=== PATIENT | female | born 1980 | race Caucasian/White ===

== ENCOUNTER 2019-06-25 16:52 | Emergency (ER) | payer OTHER ==
[2019-06-25 17:32] LABS: Bacteria/HPF None Seen HPF (None Seen); Bilirubin Negative (Negative); Blood, Urine Trace (Negative); Clarity Clear (Clear); Glucose, Urine (Dipstick) Normal (Negative); Leukocyte Negative Leu/uL (Negative); Nitrite Negative (Negative); Protein, Urine (Dipstick) Negative (Neg-Trace); Squamous Epithelial 0-3 HPF (0-3); Urobilinogen Normal mg/dL (Less than 2); WBC/HPF 0-3 HPF (0-3)
[2019-06-25 17:44] LABS: #Basophils 0.1 thou/uL (0.0-0.2); #Eosinphils 0.1 thou/uL (0.0-0.7); #Lymphocytes 2.2 thou/uL (1.20-3.40); #Monocytes 0.7 thou/uL (0.11-0.59); #Neutrophils 5.9 thou/uL (1.40-6.50); %Basophils 0.7 % (0.0-1.0); %Eosinophils 1.1 % (0.0-10.0); %Lymphocytes 24.2 % (21.0-51.0); Hemoglobin 11.7 g/dL (12.0-16.0); Mean Corpuscular HGB CONC 33.5 g/dL (32.0-36.0); Mean Corpuscular Hemoglobin 30.8 pg (27.0-31.0); Mean Corpuscular Volume 91.9 fL (78.0-98.0); Platelet Count 295 thou/uL (130-400)
[2019-06-25] MEDS ORDERED: Ondansetron PF 4 MG/2 ML Vial ONE (17:59)
[2019-06-25 18:05] LABS: ALT (SGPT) 29 U/L (8-55); AST (SGOT) 13 U/L (5-34); Albumin 4.3 g/dL (3.5-5.0); Alkaline Phosphatase 83 U/L (40-110); Anion Gap 11 mmol/L (10-20); BUN (Urea Nitrogen) 9 mg/dL (7.0-18.7); Bilirubin, Total 0.2 mg/dL (0.2-1.2); Calc. Creatinine Clearance 0 mL/min (70-130); Calcium 9.1 mg/dL (7.8-10.44); Carbon Dioxide 24 mmol/L (22-29); Chloride 105 mmol/L (98-107); Estimated GFR-MDRD Greater than 90; Globulin 2.8 g/dL (2.4-3.5); Glucose 107 mg/dL (70-105); Lipase 33 U/L (8-78); Potassium 3.9 mmol/L (3.5-5.1); Protein, Total 7.1 g/dL (6.0-8.3); Sodium 136 mmol/L (136-145)
--- NOTE | 2019-06-25 18:36 | ULT ---
Ultrasound abdomen limited: (Right lower quadrant) DATE: 06/25/2019 HISTORY: 39-year-old female with right lower quadrant abdominal pain, nausea, and emesis. TECHNIQUE: Focused ultrasound of the right lower quadrant. FINDINGS: The appendix is not identified. Appendicitis is needed ruled in normal without. The patient is very t boub[place] in this region. IMPRESSION: Nondiagnostic for appendicitis.
--- NOTE | 2019-06-25 19:17 | ULT ---
ULTRASOUND PELVIC ULTRASOUND TRANSVAGINAL DOPPLER DUPLEX: DATE: 06/25/2019 HISTORY: 39-year-old female with right lower quadrant abdominal pain, nausea, and vomiting. TECHNIQUE: Transabdominal transducer and endovaginal transducer used to visualize intrapelvic contents with castanon scale, color-flow, and spectral analysis. FINDINGS: Appendix not identified. Right ovary: 3.7 x 2.8 x 3.7 cm. Left ovary: 2.7 x 1.6 x 2.0 cm. Blood flow demonstrated in both ovaries by Doppler. 0.8 x 0.4 cm cystic structure in left ovary. 2.5 x 2.5 x 3 cm round cyst expands the right ovary. There are at least 3 uterine leiomyomata. The largest one is 3.5 x 3 x 3.5 cm. Intrauterine gestational sac. Booth fetus. heart rate: 163 BPM. No subchorionic hemorrhage. [place]-rump length 6 cm: 12 weeks 3 days No free fluid in cul-de-sac or adnexa. IMPRESSION: 1. Appendix still not identified. 2. Live very early second trimester intrauterine gestation estimated to be 12 weeks 3 days gestationa l age. 3. A 3 cm right ovarian cyst. 4. At least 3 uterine fibroids (leiomyomata).
== END 2019-06-25 19:00 | disposition home or self-care (01) ==
LOC: ERS 16:52
DX: O34.81 Maternal care for other abnormalities of pelvic organs, first trimester (principal); N83.201 Unspecified ovarian cyst, right side; O34.11 Maternal care for benign tumor of corpus uteri, first trimester; Z3A.12 12 weeks gestation of pregnancy
CPT/HCPCS: 76705; 76856; 80053; 81003; 81015; 83690; 85025; 96361; 96374; J2405

== ENCOUNTER 2019-06-26 07:18 | Emergency (ER) | payer OTHER | END 2019-06-26 08:12 | disposition home or self-care (01) | LOC: ERS 07:18 | DX: O99.89 Other specified diseases and conditions complicating pregnancy, childbirth and the puerperium (principal); R10.9 Unspecified abdominal pain | CPT/HCPCS: 99283 ==

== ENCOUNTER 2019-12-28 16:58 | Inpatient (IN) | payer OTHER ==
[~2019-12-28 16:58] MED LIST: Bupivacaine 0.25% HCL 30 ML VIAL ONE
[2019-12-28] MEDS ORDERED: NS / Oxytocin 40 units/1000ml 1,000 ML IV PRN (17:01)
[2019-12-28] MEDS ORDERED: Promethazine HCl 25 MG/ML VIAL IM PRN (17:01)
[2019-12-28] MEDS ORDERED: Diphenoxylate HCl/Atropine Tablet PO PRN (17:01)
[2019-12-28] MEDS ORDERED: Ibuprofen 800 MG TAB PO PRN (17:01)
[2019-12-28] MEDS ORDERED: hydrALAZINE 20 MG/ML VIAL SLOW IVP PRN (17:01)
[2019-12-28] MEDS ORDERED: Misoprostol 200 MCG TAB PR PRN (17:01)
[2019-12-28] MEDS ORDERED: Carboprost 250 MCG/ML AMP IM PRN (17:01)
[2019-12-28] MEDS ORDERED: HYDROcodone/Acetaminophen 5/325 mg Tablet PO PRN (17:01)
[2019-12-28] MEDS ORDERED: Acetaminophen 500 MG TAB PO PRN (17:01)
[2019-12-28] MEDS ORDERED: Lidocaine 1% (PF) 30 ML VIAL SC PRN (17:01)
[2019-12-28] MEDS ORDERED: Ondansetron PF 4 MG/2 ML Vial IVP PRN (17:01)
[2019-12-28 17:42] VITALS: BMI 36.8
[2019-12-28] MEDS: Lactated Ringer's 1,000 ML IV SCH ×2 (18:00→21:37)
[2019-12-28] MEDS: Misoprostol 100 MCG TAB VAG SCH ×2 (18:08→21:21)
[2019-12-28 18:22] LABS: Hemoglobin 11.9 g/dL (12.0-16.0); Mean Corpuscular HGB CONC 33.1 g/dL (32.0-36.0); Mean Corpuscular Hemoglobin 30.6 pg (27.0-31.0); Mean Corpuscular Volume 92.3 fL (78.0-98.0); Platelet Count 284 thou/uL (130-400); RBC Distribution Width 13.5 % (11.5-14.5); White Blood Cell (WBC) Count 9.2 thou/uL (4.8-10.8)
[2019-12-28 18:35] LABS: ALT (SGPT) 9 U/L (8-55); AST (SGOT) 9 U/L (5-34); Albumin 3.8 g/dL (3.5-5.0); Alkaline Phosphatase 274 U/L (40-110); Anion Gap 14 mmol/L (10-20); BUN (Urea Nitrogen) 8 mg/dL (7.0-18.7); Bilirubin, Total 0.2 mg/dL (0.2-1.2); Calc. Creatinine Clearance 215 mL/min (70-130); Calcium 9.1 mg/dL (7.8-10.44); Carbon Dioxide 20 mmol/L (22-29); Chloride 106 mmol/L (98-107); Estimated GFR-MDRD Greater than 90; Globulin 3.1 g/dL (2.4-3.5); Glucose 73 mg/dL (70-105); Potassium 4.2 mmol/L (3.5-5.1); Protein, Total 6.9 g/dL (6.0-8.3); Sodium 136 mmol/L (136-145)
[2019-12-28 18:54] LABS: HBSAg Index 0.17 S/CO (0-0.99); Hep B Surf Ag Non-Reactive S/CO (NonReactive)
[2019-12-28 19:00] LABS: Syphilis Antibody Nonreactive (Nonreactive); Syphilis Antibody Index 0.04 S/CO (<1.00 Non-Reactive)
--- NOTE | 2019-12-28 20:45 | PDOC.LDHP ---
Labor and Delivery H&P Chief complaint: other (elevated BP) HPI: 39yo at 39w0d by LMP sent over from clinic for new onset severe range BP 140/102. No sx PIH or labor. Current gestational age (weeks): 39 Due date: 01/04/20 Dating criteria: last menstrual period Grav: 2 Para: 0 Current complications: other (AMA, CF carrier) Abnormal US findings: No Past Medical History: Hx of gastric bypass, anemia, vit d deficiency Current medications: pre- vitamins, iron, other (vitamin d) Previous surgical history: dilation and curettage, other (bypass) Allergies/Adverse Reactions: Allergies Allergy/AdvReac Type Severity Reaction Status Date / Time hydromorphone [From Dilaudid] Allergy Verified 12/28/19 17:45 Penicillins Allergy Verified 12/28/19 17:45 Social history: none - Physical Exam Vital signs reviewed and normal: yes Abnormal vital signs: mild range bps General: NAD Heart: RRR Lungs: CTAB Abdomen: gravid Extremeties: no edema FHT: category 1 [place] contractions every: none - Vaginal Exam cm dilated: 1 Effacement: 50% Station: -2 - OB Labs Blood type: O RH: positive Antibody Screen: negative HIV: negative RPR: negative HEPSAg: negative 1 hour GCT: positive 3 hour GTT: neg- 1/4values abn GBS: negative Urine drug screen: negative Rubella: non-immune - Assessment L&D Assessment: medically indicated induction - Plan Plan: admit to L&D, cervical ripening, labor augmentation if indicated, informed consent obtained, anesthesia consult for pain management (PIH labs wnl , Mag for severe features.)
[2019-12-29] MEDS: Misoprostol 100 MCG TAB VAG SCH ×2 (03:48→08:43)
[2019-12-29] MEDS: Butorphanol Tartrate 1 MG/ML VIAL SLOW IVP PRN ×4 (03:50→11:32)
[2019-12-29] MEDS: Lactated Ringer's 1,000 ML IV SCH ×2 (05:44→14:40)
--- NOTE | 2019-12-29 08:36 | PDOC.LDPN ---
Labor & Delivery Progress Note - Subjective Subjective: comfortable - Objective Vital signs reviewed and normal: yes Abnormal vital signs: mild range bp General: NAD Uterine fundus: non tender Dilation: 1 Effacement: 75% Station: -1 FHT: category 1 [place] contractions every: 3min Plan: other (cont cytotec for ripening.) -: no sx pIH, Mag for severe features.
[2019-12-29] MEDS ORDERED: Fentanyl 4 mcg/Bup 0.1% Cadd 100 ML ONE (11:38)
[2019-12-29] MEDS ORDERED: Acetaminophen 325 MG TAB PO PRN (12:50)
[2019-12-29] MEDS ORDERED: diphenhydrAMINE 50 MG/ML VIAL IVP PRN (12:50)
[2019-12-29] MEDS ORDERED: Promethazine HCl 25 MG/ML VIAL IM PRN (12:50)
[2019-12-29] MEDS ORDERED: Naloxone HCl 0.4 mg/ml Vial IVP PRN ×2 (12:50)
[2019-12-29] MEDS ORDERED: Lactated Ringer's 500 ML IV PRN (12:50)
[2019-12-29] MEDS ORDERED: Ondansetron PF 4 MG/2 ML Vial IVP PRN ×2 (12:50→19:56)
[2019-12-29] MEDS ORDERED: EPHEDRINE 25 MG/5 ML SYRINGE SLOW IVP PRN (12:50)
[2019-12-29] MEDS ORDERED: Fentanyl 4 mcg/Bupivacaine 0.1% Cassette 100 ML EPIDURAL SCH (13:00)
[2019-12-29] MEDS ORDERED: Communication Order-Pharmacy FS SCH (13:00)
[2019-12-29] MEDS: NS w/ Oxytocin 10 units 500 ML IV SCH (13:34)
--- NOTE | 2019-12-29 19:00 | PDOC.OPDEL ---
OB Operative/Delivery Note Delivery Dr/Surgeon: Emelia Assist: n/a Pre-Delivery Diagnosis: medically indicated induction (GHTN) Procedure/Post Delivery Dx: spontaneous vaginal delivery Weeks gestation: 39 Anesthesia: epidural - Findings A Sex: male - 1 min: 8 - 5 min: 9 - Additional Findings/Plan Placenta delivered: spontaneous Repaired Obstetrical Laceration: periurethral (and first degree perineal) Estimated blood loss: 166cc qbl Post delivery plan: routine recovery
[2019-12-29] MEDS ORDERED: Lanolin Ointment 7 GM TUBE TOP PRN (19:56)
[2019-12-29] MEDS ORDERED: Benzocaine-Menthol 82.5 ML CAN TOP PRN (19:56)
[2019-12-29] MEDS ORDERED: Measles/Mumps/Rubella 10 MCG/0.5 ML VIAL SC ONE (19:56)
[2019-12-29] MEDS ORDERED: diphenhydrAMINE 25 MG CAP PO PRN (19:56)
[2019-12-29] MEDS ORDERED: Milk Of Magnesia 30 ML UDCUP PO PRN (19:56)
[2019-12-29] MEDS ORDERED: Preparation H Ointment 28 GM TUBE PR PRN (19:56)
[2019-12-29] MEDS ORDERED: Bisacodyl 10 MG SUPP PR PRN (19:56)
[2019-12-29] MEDS ORDERED: HYDROcodone/Acetaminophen 5/325 mg Tablet PO PRN ×2 (19:56)
[2019-12-29] MEDS ORDERED: hydrALAZINE 20 MG/ML VIAL SLOW IVP PRN (19:56)
[2019-12-29] MEDS ORDERED: NS / Oxytocin 40 units/1000ml 1,000 ML IV SCH (19:56)
[2019-12-29] MEDS ORDERED: Adacel (T-DAP) 0.5 ML SYRINGE IM ONE (19:56)
[2019-12-29] MEDS: Docusate Calcium (SURFAK) 240 MG CAP PO SCH (21:07)
[2019-12-29] MEDS: Ibuprofen 800 MG TAB PO SCH (21:08)
--- NOTE | 2019-12-30 01:15 | PDOC.PP ---
Post Progress Note Post Day #: PPD1 Subjective: Resting, no c/o. PO intake tolerated: yes Flatus: yes Ambulation: yes Vital Signs (12 hours) Temp Pulse Resp BP Pulse Ox 12/29/19 21:40 98.7 F 88 18 121/59 L 98 12/29/19 20:40 98 12/29/19 20:35 98.7 F 88 18 121/59 L 98 12/29/19 15:30 84 Weight Weight 109.769 kg - Physical Examination General: NAD Respiratory: non-labored breathing Abdominal: no distention Neurological: no gross focal deficits Psychiatric: normal affect Result Diagrams: 12/28/19 18:04 12/28/19 18:04 Additional Labs: Post Labs Blood Type O POSITIVE 12/28/19 18:34 Hep Bs Antigen Non-Reactive S/CO (NonReactive) 12/28/19 18:04 - Assessment/Plan Doing well s/p . Routine PP care.
[2019-12-30] MEDS: Ibuprofen 800 MG TAB PO SCH ×3 (05:57→21:48)
[2019-12-30] MEDS: Misoprostol 100 MCG TAB VAG SCH ×2 (07:51→07:52)
[2019-12-30] MEDS: NS w/ Oxytocin 10 units 500 ML IV SCH (07:52)
[2019-12-30] MEDS: Docusate Calcium (SURFAK) 240 MG CAP PO SCH ×2 (08:21→21:48)
[2019-12-30] MEDS: Prenatal Vitamin 1 TAB PO SCH (08:21)
[2019-12-30] MEDS: Ferrous Sulfate 325 MG TAB PO SCH ×2 (08:22→18:07)
[2019-12-31] MEDS: Ibuprofen 800 MG TAB PO SCH ×2 (05:27→14:23)
[2019-12-31 08:21] VITALS: BP 118/58; TEMP 98.8
[2019-12-31] MEDS: Docusate Calcium (SURFAK) 240 MG CAP PO SCH (09:05)
[2019-12-31] MEDS: Prenatal Vitamin 1 TAB PO SCH (09:05)
[2019-12-31] MEDS: Ferrous Sulfate 325 MG TAB PO SCH ×2 (09:06→15:24)
--- NOTE | 2020-01-01 06:35 | DIS ---
DATE OF ADMISSION: 12/28/2019 DATE OF DISCHARGE: 12/31/2019 TIME OF SERVICE: 0730 hours. HISTORY: The patient is day #2, status post . She had severe range gestational hypertension with normal pressures post-. She has no complaints. PHYSICAL EXAMINATION: VITAL SIGNS: Temperature 98.5, pulse 70, respirations 18, blood pressure 115/59. HEENT: Within normal limits. LUNGS: Clear to auscultation bilaterally. HEART: Regular rate and rhythm. ABDOMEN: Soft and nontender. Normal lochia. Fundus firm. EXTREMITIES: Without clubbing, cyanosis, or edema. IMPRESSION: Doing well, status post normal spontaneous vaginal delivery. PLAN: Discharge home. Keep scheduled followup. Routine followup with Dr. Kapoor. Job ID: [id number]
== END 2019-12-31 17:15 | disposition home or self-care (01) | DRG 807 ==
LOC: L&D 16:58 → 3SW 12-29 20:37 → EDSTATUS 01-03 12:51
PROVIDERS: ADMIT Student in an Organized Health Care Education/Training Program; ATTEND Student in an Organized Health Care Education/Training Program
PROC: 3E0P7VZ Introduction of Hormone into Female Reproductive, Via Natural or Artificial Opening (ICD-10-PCS; 2019-12-28)
PROC: 10E0XZZ Delivery of Products of Conception, External Approach (ICD-10-PCS; principal; 2019-12-29)
PROC: 0HQ9XZZ Repair Perineum Skin, External Approach (ICD-10-PCS; 2019-12-29)
PROC: 0UQMXZZ Repair Vulva, External Approach (ICD-10-PCS; 2019-12-29)
DX: O13.4 Gestational [pregnancy-induced] hypertension without significant proteinuria, complicating childbirth (principal); Z37.0 Single live birth; Z3A.39 39 weeks gestation of pregnancy; O70.0 First degree perineal laceration during delivery; O99.02 Anemia complicating childbirth; D64.9 Anemia, unspecified; E55.9 Vitamin D deficiency, unspecified; O99.283 Endocrine, nutritional and metabolic diseases complicating pregnancy, third trimester; O71.82 Other specified trauma to perineum and vulva; Z98.84 Bariatric surgery status; Z79.899 Other long term (current) drug therapy; Z88.0 Allergy status to penicillin; Z88.8 Allergy status to other drugs, medicaments and biological substances
CPT/HCPCS: 36415; 51702; 80053; 85027; 86780; 86850; 86900; 86901; 87340; 90707; J0360; J0595; J2590; S0020

== ENCOUNTER 2022-03-31 09:01 | Outpatient (CLI) | payer OTHER | END 2022-03-31 09:02 | disposition home or self-care (01) | LOC: BICMAMMO 09:01 | PROVIDERS: ATTEND Physician Assistant | DX: R92.8 Other abnormal and inconclusive findings on diagnostic imaging of breast (principal) | CPT/HCPCS: G0279 ==